=== PATIENT | male | born 1975 | race Caucasian/White ===

== ENCOUNTER 2018-05-08 05:28 | Observation (INO) | payer OTHER ==
[2018-05-06 15:51] LABS: BASOPHILS % (AUTO) 0.4 % (0-1); EOSINOPHILS # (AUTO) 0.3 X10'3 (0-0.9); LYMPHOCYTES # (AUTO) 2.2 X10'3 (1.1-4.8); MEAN CORPUSCULAR HGB CONC 33.2 g/dL (33.0-36.5); MEAN CORPUSCULAR VOLUME 84.2 FL (78-98); MEAN PLATELET VOLUME 9.4 FL (7.4-10.4); MONOCYTES # (AUTO) 0.6 X10'3 (0-0.9); NEUTROPHILS # (AUTO) 7.3 X10'3 (1.8-7.7); NEUTROPHILS % (AUTO) 69.6 % (42-75); PRE OP HEMATOCRIT 44.2 % (42.0-52.0); PRE OP HEMOGLOBIN 14.7 g/dL (14.0-17.9); PRE OP PLATELET COUNT 198 X10'3 (140-440); RED BLOOD COUNT 5.25 X10'6 (4.70-6.10); RED CELL DISTRIBUTION WIDTH 14.9 % (11.5-14.5)
[2018-05-06 16:09] LABS: ALBUMIN 3.5 G/DL (3.4-5.0); ALBUMIN/GLOBULIN RATIO 0.9 (1.1-1.5); ALKALINE PHOSPHATASE 181 IU/L (46-116); BLOOD UREA NITROGEN 14 MG/DL (7-18); BUN/CREATININE RATIO 16.3 (5.4-32.0); CALCIUM 8.6 MG/DL (8.5-10.1); CHLORIDE 101 MMOL/L (99-107); CREATININE 0.86 MG/DL (0.60-1.10); PRE OP ALT 32 U/L (30-65); PRE OP ANION GAP 9 (8-16); PRE OP AST 10 U/L (10-37); PRE OP BILIRUB, TOTAL 0.3 MG/DL (0.0-1.0); PRE OP POTASSIUM 3.8 MMOL/L (3.4-5.1); PRE OP SODIUM 137 MMOL/L (135-145); TOTAL CARBON DIOXIDE 26.9 MMOL/L (24-32); TOTAL PROTEIN 7.2 G/DL (6.4-8.2); eGFR > 90 ML/MIN
[2018-05-06 16:11] LABS: PRE OP GLUCOSE 266 MG/DL (70-104)
[2018-05-08] VITALS (27 sets, daily range): BP systolic 96–173; BP diastolic 51–82
[~2018-05-08] VITALS: Ht 170.2 cm; Wt 153.9 kg
[~2018-05-08 05:28] MED LIST: GLIP5TAB13 PO; METF500T7 PO; SERT100T PO
[2018-05-08] MEDS ORDERED: cefazolin/dext.iso 2gm/50ml 50 ML IV ONE (05:30)
[2018-05-08] MEDS ORDERED: famotidine 20mg tablet PO ONE (05:30)
[2018-05-08] MEDS: ringers solution, lacted 1,000 ML IV SCH ×2 (06:30→15:24)
[2018-05-08] MEDS ORDERED: BUPIVAcaine/PF 2.5mg/ml (0.25%) 10ml vial ONE (06:53)
[2018-05-08] MEDS ORDERED: LIDOcaine 1% (10mg/ml) 2ml vial ONE (06:57)
[2018-05-08] MEDS ORDERED: fentaNYL /PF 50mcg/ml 5ml ampule ONE (07:25)
[2018-05-08] MEDS ORDERED: midazolam 2 mg/2 ml injection ONE (07:25)
[2018-05-08] MEDS ORDERED: ceFAZolin 1000mg inj ONE (07:43)
[2018-05-08] MEDS ORDERED: rocuronium 10mg/ml inj IV ONE (07:46)
[2018-05-08] MEDS ORDERED: propofol inj 20 ML IV ONE (07:46)
[2018-05-08] MEDS ORDERED: succinylcholine 20mg/ml inj IV ONE (07:46)
[2018-05-08] MEDS ORDERED: LIDOcaine 2% (20mg/ml) 5ml vial ONE (07:46)
[2018-05-08] MEDS ORDERED: ringers solution, lacted 1,000 ML IV SCH (08:44)
[2018-05-08] MEDS ORDERED: morphine 4 MG/ML inj SYRINge IV PRN (08:45)
[2018-05-08] MEDS ORDERED: meperidine/PF 25mg/ml syringe IV PRN ×2 (08:45)
[2018-05-08] MEDS ORDERED: ondansetron/PF 4mg/2ml inj IV PRN ×2 (08:45→10:15)
[2018-05-08] MEDS ORDERED: proCHLORperazine 10 MG/2 ml inj IV PRN (08:45)
[2018-05-08] MEDS ORDERED: ROPIVAcaine 0.5% (5mg/ml) 30ml vial ONE (09:50)
[2018-05-08] MEDS ORDERED: glycopyrrolate 0.2mg/ml inj ONE (09:58)
[2018-05-08] MEDS ORDERED: ketorolac trometh. 30mg/ml inj. ONE (09:58)
[2018-05-08] MEDS ORDERED: neostigmine methylsulfate 1 MG/ML 10ml vial ONE (09:58)
[2018-05-08] MEDS ORDERED: ondansetron/PF 4mg/2ml inj ONE (09:58)
[2018-05-08] MEDS ORDERED: diphenhydrAMINE 25mg capsule PO PRN ×2 (10:15)
[2018-05-08] MEDS ORDERED: acetaminophen 325mg tablet PO PRN (10:15)
[2018-05-08] MEDS ORDERED: bisacodyl 10mg suppository rectal RC PRN (10:15)
[2018-05-08] MEDS ORDERED: magnesium hydroxide 30ml (MOM) UD suspension PO PRN (10:15)
[2018-05-08] MEDS ORDERED: HYDROmorphone 1 mg/ml syringe IV PRN (10:15)
[2018-05-08] MEDS ORDERED: oxyCODONE IR 5mg (immed. release) tablet PO PRN (10:15)
[2018-05-08] MEDS ORDERED: HYDROmorphone inj. 0.5 MG/0.5 ML DISP.SYRIN IV PRN (10:15)
--- NOTE | 2018-05-08 10:15 | NUR ---
ARRIVED IN PACU VIA GURNEY FROM OR WITH O2 ON. DR MELGOZA IN ATTENDANCE. REPORT RECEIVED. VS STABLE NO C/O PAIN
[2018-05-08] MEDS ORDERED: insulin regular, human 10 units/0.1 ml syringe IV STA (10:25)
[2018-05-08] MEDS: meperidine/PF 25mg/ml syringe IV PRN ×4 (10:41→11:07)
--- NOTE | 2018-05-08 10:45 | NUR ---
PT AWAKE. C/O SEVERE PAIN, BEING MEDICATED ORDERED. LUE IN SLING AND RESTING ON PILLOW. FINGERS WARM AND PINK AND WITH GOOD MOVEMENT. VS STABLE
--- NOTE | 2018-05-08 10:45 | NUR ---
PT C/O OF SOME L HIP PAIN RADIATING DOWN LEG
--- NOTE | 2018-05-08 11:15 | NUR ---
CONTINUES TO C/O OF SEVERE PAIN. BODY LANGUAGE QUIET BUT DOESN'T DOZE AFTER MEDS. CONT TO MEDICATE PER ORDERS. VS STABLE
[2018-05-08] MEDS: morphine 4 MG/ML inj SYRINge IV PRN ×3 (11:30→12:11)
--- NOTE | 2018-05-08 11:45 | NUR ---
PT CONTINUES TO REQUIRE LARGE AMTS PAIN MEDS. AT BEDSIDE, VS STABLE. CONT AWAKE. BREATING EASY
[2018-05-08] MEDS: oxyCODONE IR 5mg (immed. release) tablet PO PRN ×3 (11:48→23:32)
--- NOTE | 2018-05-08 12:15 | NUR ---
PT NOW SLEEPING IN SHORT INTERVALS. EASILY AROUSED. VS STABLE
--- NOTE | 2018-05-08 12:34 | NUR ---
PT TRANSFERRED TO FLOOR VIA [facility]. PT WANTED TO WALK A FEW STEPS TO BED FROM [facility]. WHEN UP PT SAID BOTH LEGS WERE NUMB AND WEAK FROM GROIN TO FEET. DR JON NOTIFIED. PT VS STABLE ON ARRIVAL
--- NOTE | 2018-05-08 12:46 | NUR ---
Patient in room . I have received report from Ratna MENDEZ in Recovery and had the opportunity to ask questions and assume patient care.
[2018-05-08] MEDS: acetaminophen 325mg tablet PO SCH ×2 (14:01→20:19)
[2018-05-08] MEDS: ketorolac tromethamine 15mg/ml inj. IV SCH ×2 (14:01→20:17)
--- NOTE | 2018-05-08 14:24 | NUR ---
BASE FILLER AT [id number] IN ON THE WRONG PT. PLEASE DISREGARD
[2018-05-08] MEDS: potassium cl 20mEq in 1/2 NS 1,000 ML IV SCH ×2 (15:00→18:11)
[2018-05-08] MEDS: ceFAZolin 1GM/D5W- ADD-VANTAGE 50 ML IV SCH ×2 (16:16→23:32)
--- NOTE | 2018-05-08 18:39 | NUR ---
Problems reprioritized. Patient report given, questions answered & plan of care reviewed with Georgina Erickson RN.
--- NOTE | 2018-05-08 18:40 | NUR ---
Patient in room ORTHO 4006. I have received report from DAV MENDEZ and had the opportunity to ask questions and assume patient care.
[2018-05-08] MEDS ORDERED: metFORMIN 500mg tablet PO SCH (20:00)
[2018-05-08] MEDS ORDERED: sennosides 8.6mg tablet PO SCH (21:00)
[2018-05-09] MEDS: ketorolac tromethamine 15mg/ml inj. IV SCH ×2 (02:19→08:13)
[2018-05-09] MEDS: acetaminophen 325mg tablet PO SCH ×2 (02:20→08:13)
[2018-05-09] MEDS: potassium cl 20mEq in 1/2 NS 1,000 ML IV SCH (02:21)
[2018-05-09 03:00] VITALS: BP 132/60
[2018-05-09 06:00] VITALS: BP 123/59
--- NOTE | 2018-05-09 06:30 | NUR ---
Problems reprioritized. Patient report given, questions answered & plan of care reviewed with DAV MENDEZ.
--- NOTE | 2018-05-09 07:05 | NUR ---
Patient in room ORTHO 4006. I have received report from Georgina Erickson RN and had the opportunity to ask questions and assume patient care.
[2018-05-09] MEDS ORDERED: glipizide 5mg tablet PO SCH (08:00)
[2018-05-09] MEDS ORDERED: metFORMIN 500mg tablet PO SCH (08:10)
[2018-05-09] MEDS ORDERED: aspirin 325mg tablet PO SCH (08:30)
[2018-05-09 10:00] VITALS: BP 143/66
[2018-05-09] MEDS: oxyCODONE IR 5mg (immed. release) tablet PO PRN (10:44)
--- NOTE | 2018-05-09 11:00 | NUR ---
patient discharged home with family and all belongings, education given on surgical site care and diabetes management, IV taken out candeclan intact
[2018-05-09] MEDS ORDERED: celeCOXIB 100mg capsule PO SCH (20:00)
[2018-05-10] MEDS ORDERED: acetaminophen 325mg tablet PO PRN (10:15)
== END 2018-05-09 11:29 | disposition home or self-care (01) ==
LOC: PAS 05:28 → EDBD 07:30 → ORTHO 4S 10:11
PROVIDERS: ADMIT Orthopaedic Surgery; ATTEND Orthopaedic Surgery
DX: M19.012 Primary osteoarthritis, left shoulder (principal); M25.512 Pain in left shoulder; M75.112 Incomplete rotator cuff tear or rupture of left shoulder, not specified as traumatic; G89.29 Other chronic pain
CPT/HCPCS: 29824; 29826; 36415; 80053; 82948; 83036; 85025; 93005; 93306; 96365; 96366; 96375; 96376; A6449; C1713; G0378; J0330; J0690; J1170; J1815; J1885; J2001; J2175; J2250; J2270; J2405; J2704; J2710; J3010; J3490; J7120; A7000; J2795; J7030